=== PATIENT | male | born 1950 | race Caucasian/White ===

== ENCOUNTER 2016-08-21 08:42 | Inpatient (IN) | payer OTHER, MEDICARE ==
--- NOTE | 2016-08-16 14:45 | GHP ---
[f rep st] PREOP HISTORY AND PHYSICAL DATE OF ADMISSION: 08/21/2016 He will be an a.m. admission for surgery at [facility] on Sunday, August 21, 2016. PROBLEM: Right hip arthritis. HISTORY OF PRESENT ILLNESS: The patient is a 65-year-old man admitted for a right total hip arthrop lasty. He has had progressive pain in his hip for at least the last 2 years. His right hip is more painful than the left. His activities are now quite limited. He can only walk about a half a mile . He is taking Aleve twice a day. He has failed nonsurgical treatment. His symptoms have progress ed, and his activities are quite limited. Approximately 3 years ago, he underwent lumbar spine surgery. He still complains of numbness on the anterior right thigh. PAST MEDICAL HISTORY: He is treated for hypothyroidism, asthma, and hypertension. He also was diag nosed with prostate cancer last year. He received radiation therapy. There is no history of heart disease, stents, DVT, or hepatitis. There is a questionable history of sleep apnea. ALLERGIES: Drug allergies: Cipro and Levaquin caused leg muscle soreness. Penicillin caused hives . Metal allergies: None. Latex allergy: None. SOCIAL HISTORY: The patient is an health care attorney. He is single but lives with a female partner. He does not smoke cigarettes and occasionally drinks alcohol. FAMILY HISTORY: Positive for cancer, arthritis, and hypertension. PHYSICAL EXAMINATION: GENERAL: He is a healthy-appearing man. Height 6 feet 6 inches. Weight 192 pounds. BMI 22.2. EYES: The conjunctivae and sclerae are clear. Pupils are round and reactive. He has a cataract lens implant in the right eye. MOUTH: Good oral hygiene. No loose teeth. CHES T: Clear. No wheezing. HEART: Regular rhythm. No murmurs. EXTREMITIES: Pertinent findings are limited to his right hip. He has full hip extension and 120 degrees of flexion. External rotation 40 degrees. Internal rotation 10 degrees. Abduction 40 degrees. IMAGING: His films show advanced degenerative arthritis of the right hip. He is about 2 mm short. IMPRESSION ON ADMISSION: 1. Right hip advanced degenerative arthritis. Prepared for a right total hip arthroplasty. He has failed nonsurgical treatment. 2. Treatment for hypothyroidism. 3. Treatment for asthma. 4. Treatment for hypertension. 5. History of prostate cancer treated with radiation therapy. 6. Status post lumbar spine surgery. PLAN: He will undergo a right total hip arthroplasty. The surgery has been described to him, inclu ding the risks, complications, expectations, and recovery time. I have specifically discussed with him the risk of dislocation, leg length inequality, infection, and sciatic nerve injury. All his qu estions have been answered, and he consents to surgery. Copy requested to: Dr. Darvin Jackson, [place] /[id number]/MODL
[2016-08-16 15:30] LABS: % IMMATURE GRANULYOCYTES 0.4 % (0.0-1.1); ABSOLUTE IMMATURE GRANULOCYTES 0.03 10^3/uL (0.00-0.10); ADD DIFF? NO; ADD MORPH? NO; ADD SCAN? NO; ATYPICAL LYMPHOCYTE FLAG 0 (0-99); FRAGMENT RBC FLAG 0 (0-99); HEMATOCRIT 44.6 % (40.0-51.0); HEMOGLOBIN 14.5 g/dL (13.7-17.5); LEFT SHIFT FLG 0 (0-99); LIPEMIA HEMOLYSIS FLAG 80 (0-99); MEAN CELL HEMOGLOBIN 29.7 pg (27.9-34.1); MEAN CELL HEMOGLOBIN CONCENTR. 32.5 g/dL (32.4-36.7); MEAN CELL VOLUME 91.2 fL (81.5-99.8); MEAN PLATELET VOLUME 9.8 fL (8.7-11.7); PLATELET CLUMPS FLAG 0 (0-99); PLATELET COUNT 226 10^3/uL (150-400); RED BLOOD CELL COUNT 4.89 10^6/uL (4.40-6.38)
[~2016-08-21 08:42] MED LIST: ACETAMINOPHEN 325 MG TAB PO ONE; CEFAZOLIN 2 GM/DEXTR 100 ML IV ONE; CHLORHEXIDINE GLUC HIBICLENS 118 ML BTL TP ONE; DEXAMETHASONE 4 MG/ML VIAL IVP ONE; FAMOTIDINE 20 MG TAB PO ONE; NS IV ONE; POVIDONE-IODINE 20 ML in SODIUM CL IRRIG SOLUTION 500 ML IRR ONE; ROPI/epiNEPH/KETOROLAC JOINT COCKTAIL IU ONE; TRANEXAMIC ACID IV ONE; ceFAZolin 1 GM/5 ML SYR ONE
[2016-08-21] MEDS ORDERED: MIDAZOLAM 2 MG/2 ML VIAL ONE ×3 (08:55→10:04)
[2016-08-21] MEDS ORDERED: fentaNYL 250 MCG/5 ML INJ ONE (08:56)
[2016-08-21] MEDS ORDERED: PROPOFOL/EMULSION 500 MG/50 ML BOTTLE IV ONE (08:56)
[2016-08-21] MEDS ORDERED: PROPOFOL 200 MG/20 ML VIAL ONE (09:10)
[2016-08-21] MEDS ORDERED: ALBUTEROL 3 ML DEYVIAL ONE (09:14)
[2016-08-21] MEDS ORDERED: FAMOTIDINE 20 MG TAB ONE (09:38)
[2016-08-21] MEDS ORDERED: DEXAMETHASONE 4 MG/ML VIAL ONE (09:38)
[2016-08-21] MEDS ORDERED: CEFAZOLIN 2 GM/DEXTROSE/100 ML BAG IV ONE (09:39)
[2016-08-21] MEDS ORDERED: ACETAMINOPHEN 325 MG TAB ONE (09:39)
[2016-08-21] MEDS ORDERED: LR 1,000 ML IV ONE (10:20)
[2016-08-21] MEDS ORDERED: LIDOCAINE 1% 5 ML SDV ID PRN (10:20)
[2016-08-21] MEDS ORDERED: PHARMACY PAIN CONSULT 1 EA MISC PRN (12:58)
[2016-08-21] MEDS ORDERED: BISACODYL 10 MG SUPP PR PRN (12:58)
[2016-08-21] MEDS ORDERED: diphenhydrAMINE 25 MG CAP PO PRN (12:58)
[2016-08-21] MEDS ORDERED: POLYETHYLENE GLYCOL 3350 17 GM PKT PO PRN (12:58)
[2016-08-21] MEDS ORDERED: ONDANSETRON DISINTEGRATING 4 MG TAB PO PRN (12:58)
[2016-08-21] MEDS ORDERED: MAGNESIUM HYDROXIDE 30 ML UDCUP PO PRN (12:58)
[2016-08-21] MEDS ORDERED: CYCLOBENZAPRINE 10 MG TAB PO PRN (12:58)
[2016-08-21] MEDS ORDERED: NS 500 ML IV PRN (12:58)
[2016-08-21] MEDS ORDERED: TEMAZEPAM 15 MG CAP PO PRN (12:58)
[2016-08-21] MEDS ORDERED: METOCLOPRAMIDE 10 MG/2 ML VIAL IVP PRN (12:58)
[2016-08-21] MEDS ORDERED: traMADol 50 MG TAB PO PRN (12:58)
[2016-08-21] MEDS ORDERED: LACTULOSE 20 GM/30 ML UDCUP PO PRN (12:58)
[2016-08-21] MEDS ORDERED: ONDANSETRON 4 MG/2 ML VIAL IVP PRN (12:58)
[2016-08-21] MEDS ORDERED: DIPHENOXYLATE/ATROPINE LOMOTIL 1 TAB PO PRN (12:58)
[2016-08-21] MEDS ORDERED: oxyCODONE IR 5 MG TAB PO PRN (12:58)
[2016-08-21] MEDS ORDERED: KETOROLAC 30 MG/1 ML SDV IVP PRN (12:58)
[2016-08-21] MEDS ORDERED: PROMETHAZINE HCL 25 MG SUPPR PR PRN (12:58)
[2016-08-21] MEDS ORDERED: LR 1,000 ML IV SCH (13:00)
--- NOTE | 2016-08-21 13:06 | POSTOPPROG ---
Post Op Note Date of Operation: 08/21/16 Surgeon: Charles Munson Food Service Agent: Tay/Alyssa Anesthesiologist: Willy Anesthesia: IV Sedation, Spinal Post-op Diagnosis: R hip arthritis Procedure: R [place] Inf/Abcess present in the surg proc area at time of surgery?: No EBL: [id number]
--- NOTE | 2016-08-21 13:50 | GOP ---
[f rep st] OPERATIVE REPORT DATE OF OPERATION: 08/21/2016 SURGEON: Charles Munson MD PROFESSIONAL DRIVER: Eric Cross PA-C and Stone Shah CFA ANESTHESIA: Combination of Marcaine spinal and IV sedation. ANESTHESIOLOGIST: Dr. Abdullahi Levine PREOPERATIVE DIAGNOSIS: Right hip severe degenerative arthritis. POSTOPERATIVE DIAGNOSIS: Right hip severe degenerative arthritis. PROCEDURE PERFORMED: Right total hip arthroplasty, Oxinium femoral head on highly cross-linked poly ethylene cup liner. FINDINGS: DESCRIPTION OF PROCEDURE: The patient was given 2 g of IV Ancef preoperatively within 60 minutes of surgery. He also received IV tranexamic acid at a dose of 20 mg/kg. He was placed on the operatin g room table and given spinal anesthesia with Marcaine by Dr. Levine. He was then placed supine and given IV sedation. A Leyva catheter was not used. He wore a DEMETRICE stocking and SCD on the nonoperat yumiko leg. He was rolled to the left lateral decubitus position. The position was secured with the p egboard table attachment. An axillary roll was used and all pressure points were carefully padded. I was careful to lock his pelvis in a vertical position. His perineum was isolated with plastic ad hesive drapes. His right hip and right lower extremity were prepped with ChloraPrep. They were yaa ped free using sterile sheets, stockinette, and Ioban plastic adhesive drape. The World Health Organization timeout was performed to verify the correct surgical side and site, an d the correct patient identity. The [place] timeout was also performed. I made a 5-inch straight oblique posterolateral hip skin incision. The subcutaneous tissues were sh arply divided and hemostasis was obtained using electrocautery. The fascia magdalena was identified and split along the axis of its fibers. I then curved posteriorly and proximally and split the fascia o f the gluteus brain and bluntly split the muscle fibers in line with their orientation. The incis ion only extended a short distance into the fascia magdalena distally. The Charnley self-retaining retra ctor was inserted. His sciatic nerve was located, partially exposed and protected throughout the pr ocedure. The external rotators and the posterior hip capsule were divided as separate layers at the base of the femoral neck, tagged and reflected posteriorly. A smooth 8-inch Steinmann pin was inse rted vertically into the ilium superior to the acetabulum. A 1/8th inch drill bit was inserted vert ically into the greater trochanter and parallel to the first pin. The distance between the 2 was me asured for leg length reference. His femoral head was dislocated posteriorly. Severe degenerative changes were present on the femoral head. His femoral neck was osteotomized at the appropriate leve l and inclination. I was careful to preserve all the posterior capsule and most of the anterior capsule. The remnant o f his damaged labrum was excised. I prepared the femur first. This allowed me to oncology coordinator the amount of natural femoral neck anteversion . This, in turn, allowed me to later determine the correct amount of cup anteversion. He had appro ximately 10 or 12 degrees of natural femoral neck anteversion. The canal was opened laterally with a box chisel. I reamed and broached sequentially up to a size 16. I used a size 16 broach as a tri al stem. I was careful to lateralize adequately. Appropriate retractors were inserted to expose the acetabulum. The acetabulum was reamed sequential ly up to 57 mm. I selected a 58 mm Higuera and Nephew R3 solid backed hemispherical shell. This was tapped securely into place in the proper degree of inclination anteversion. Fixation was strong and I did not think supplemental screw fixation was necessary. I performed a series of trial reduction s to determine length and stability. I took an intraoperative cross-table AP pelvis x-ray. Leg didier gths looked equal. I felt the size 16 stem was the correct size. I thought he could have a little more cup anteversion. I went back and repositioned the acetabular shell into about 5 or 10 degrees more anteversion. The trial reduction with a flush mounted liner was stable. The flush Higuera and N ephew R3 highly cross-linked polyethylene liner was inserted and tapped securely into place. I chao cted the Higuera and Nephew Synergy stem in a size 16 with standard offset. This was inserted press-f it and was very tight. I did 1 final trial reduction and confirmed that the +4 mm neck length with a 36 mm head was the proper combination. The Higuera and Nephew Oxinium head with an outside diameter of 36 mm and a neck length of +4 mm was tapped securely onto the clean trunnion. The acetabulum wa s irrigated and cleaned and the hip was reduced 1 final time. He had excellent anterior and posteri or stability and appropriate length. 40 mL of the joint anesthetic cocktail were injected into the capsule, the deep musculature, and the subcutaneous tissues around the skin edges. The joint was thoroughly irrigated 1 final time with a dilute Betadine solution. His sciatic nerve was reinspected and looked unharmed. The external rot ators and the posterior hip capsule were repaired in separate layers with #2 FiberWire sutures throu gh drill holes in the greater trochanter. This provided a very strong posterior capsular and tool setter apprentice al rotator repair. The fascia magdalena was closed first with several interrupted [id number] #2 Fib erWire sutures followed by a running #2 barbed Ethicon Stratafix PDO suture. Subcutaneous tissues w ere closed with a running 0 barbed Ethicon Stratafix Monoderm suture. The skin was closed with a ru nning 3-0 barbed Ethicon Stratafix monoderm subcuticular suture. The skin edges were reapproximated and sealed with Dermabond glue. The wound was covered with a strip of Telfa, and everything was he ld in place with a piece of clear plastic Tegaderm. A long-leg DEMETRICE stocking and SCD were applied to his right lower extremity. He wore a stocking and S CD on the opposite leg during the procedure. An abduction pillow was placed between his knees. He was awakened from anesthesia and rolled to the supine position on his [facility]. He was taken to PACU in satisfactory condition. There were no intraoperative complications. The estimated bloo d loss was about 400 mL. The sponge and needle count were correct on 2 occasions. I used a Higuera and Nephew R3 hemispherical solid-backed acetabular shell with an outside diameter of 58 mm. The liner was a Higuera and Nephew R3 flush highly cross-linked liner with an inside diameter of 36 mm. The femoral component was a standard offset Higuera and Nephew Synergy stem in size 16 and press-fit. The femoral head was Higuera and Nephew Oxinium head with a +4 mm neck length and a 36 mm outside diameter. Eric Cross and Stone Shah acted as surgical assistants. Their assistance was a medical [place]. Copy requested to: Jimmy Hatch MD /[id number]/[facility]
[2016-08-21] MEDS: ACETAMINOPHEN 325 MG TAB PO SCH ×2 (18:08→23:45)
[2016-08-21] MEDS: ceFAZolin 2 GM/DEXTROSE 100 ML IV SCH (18:08)
[2016-08-21] MEDS ORDERED: Mometasone/Formoterol [Dulera 200 Mcg/5 Mcg Inhaler] 2 PUFFS) IH SCH (21:00)
[2016-08-21] MEDS ORDERED: AZELASTINE HCL EACHNARE SCH (21:00)
[2016-08-21] MEDS ORDERED: TAMSULOSIN HCL 0.4 MG CAP PO SCH (21:00)
[2016-08-21] MEDS: AZELASTINE HCL EACHNARE SCH (21:13)
[2016-08-21] MEDS: SENNOSIDES/DOCUSATE SODIUM TAB PO SCH (21:13)
[2016-08-21] MEDS: TRANEXAMIC ACID 650 MG TAB PO SCH (21:13)
[2016-08-21] MEDS: ASPIRIN 325 MG TAB PO SCH (21:13)
[2016-08-21] MEDS: FAMOTIDINE 20 MG TAB PO SCH (21:13)
[2016-08-21] MEDS: Mometasone/Formoterol [Dulera 200 Mcg/5 Mcg Inhaler] 2 PUFFS) IH SCH (21:15)
[2016-08-22] MEDS: ceFAZolin 2 GM/DEXTROSE 100 ML IV SCH (04:41)
[2016-08-22 04:55] VITALS: O2SAT 93
[2016-08-22 05:02] LABS: HEMATOCRIT 37.1 % (40.0-51.0); HEMOGLOBIN 12.6 g/dL (13.7-17.5)
[2016-08-22] MEDS: ACETAMINOPHEN 325 MG TAB PO SCH ×2 (05:18→13:20)
[2016-08-22] MEDS ORDERED: LEVOTHYROXINE 150 MCG TAB PO SCH (06:00)
[2016-08-22] MEDS ORDERED: IPRATROPIUM 0.03% NASAL SPRAY EACHNARE PRN (08:07)
[2016-08-22] MEDS ORDERED: DRY EYE RELIEF EACHEYE PRN (08:07)
[2016-08-22 08:09] VITALS: TEMP 98.1
[2016-08-22] MEDS ORDERED: TEARS/DEXTRAN 70/HYPROMELLOSE 15 ML OPHT.BTL EACHEYE PRN (08:20)
[2016-08-22] MEDS ORDERED: ALBUTEROL 60 PUFFS/8 GM MDI IH PRN (08:30)
--- NOTE | 2016-08-22 08:31 | SOAPPROG ---
SOAP Progress Note Assessment/Plan: Assessment: Afebrile. Mild pain. Has been up and walking in [place]. Dsg is dry. Min swelling. Sciatic nerve intact. H/H is good. He is self catheterizing himself like he does at home. Films look good. Plan: DC today. 08/22/16 08:29 Objective: Vital Signs Temp Pulse Resp BP Pulse Ox 36.7 C 64 16 136/77 H 93 08/22/16 08:08 08/22/16 08:08 08/22/16 08:08 08/22/16 08:08 08/22/16 08:08 Laboratory Results 08/22/16 04:23 08/21/16 08/22/16 08/23/16 05:59 05:59 05:59 Intake Total 3700 Output Total 1550 Balance 2150 ICD10 Worksheet Patient Problems: Problems Problem Status Onset Osteoarthritis of right hip Acute
[2016-08-22] MEDS ORDERED: FLUTICASONE NASAL 120 SPRAYS/16 GM MDI EACHNARE SCH (09:00)
[2016-08-22] MEDS ORDERED: FERROUS SULFATE 140 MG TAB.ER PO SCH (09:00)
[2016-08-22] MEDS ORDERED: Herbals/Supplements -Info Only PO SCH (09:00)
[2016-08-22] MEDS ORDERED: ASCORBIC ACID 500 MG TAB PO SCH (09:00)
[2016-08-22] MEDS ORDERED: guaiFENesin 600 MG TAB.ER PO SCH (09:00)
[2016-08-22] MEDS ORDERED: RAMIPRIL 5 MG CAP PO SCH (09:00)
[2016-08-22] MEDS ORDERED: MULTIVITAMINS 1 EACH TAB PO SCH (09:00)
[2016-08-22] MEDS ORDERED: TESTOSTERONE 5 GM TD SCH (09:00)
[2016-08-22] MEDS: TRANEXAMIC ACID 650 MG TAB PO SCH (09:02)
[2016-08-22] MEDS: ASPIRIN 325 MG TAB PO SCH (09:04)
[2016-08-22] MEDS: SENNOSIDES/DOCUSATE SODIUM TAB PO SCH (09:04)
[2016-08-22] MEDS: FAMOTIDINE 20 MG TAB PO SCH (09:05)
[2016-08-22] MEDS: Mometasone/Formoterol [Dulera 200 Mcg/5 Mcg Inhaler] 2 PUFFS) IH SCH (09:06)
[2016-08-22] MEDS: AZELASTINE HCL EACHNARE SCH (09:07)
--- NOTE | 2016-08-22 09:33 | GDS ---
[f rep st] DISCHARGE SUMMARY ADMISSION DIAGNOSIS: Right hip severe degenerative arthritis. DISCHARGE DIAGNOSIS: Right hip severe degenerative arthritis. OPERATION PERFORMED: 08/21/2016, a right total hip arthroplasty, Oxinium femoral head on highly microwave remote sensing scientist ss-linked polyethylene liner. POSTOPERATIVE COMPLICATIONS: None. CONDITION ON DISCHARGE: Improved. HOSPITAL COURSE: The patient was admitted to the hospital on the morning of surgery. His admission CBC was normal. The same day, under a combination of spinal anesthesia and IV sedation, he underwe nt a right total hip arthroplasty. Postoperatively, he was treated with multimodal DVT prophylaxis, including aspirin. He was largely able to void spontaneously, although he occasionally was self-ca theterizing himself. This is what he does at home as well. On the 1st postoperative day, his hemoglobin and hematocrit were 12.6 and 37.1. He was seen by [facility] and made excellent progress with ambulation and stairs. By the time of discharge, he w as afebrile, his wound was clean and dry, and he was independent walking with a walker. DISPOSITION: The patient is discharged to his home. DISCHARGE INSTRUCTIONS: He will go to outpatient physical therapy. He may progress to full weightb earing as tolerated on the right hip. Use an abduction pillow in bed for 3 weeks. Continue aspirin 325 mg p.o. daily for 21 days. Use DEMETRICE stockings for 1 week. He has prescriptions for oxycodone a nd tramadol for pain control. I will see him back in the office on September 13, 2016. If there are any problems, he is to call me at the office. Copy requested to: Jimmy Hatch MD /[id number]/[facility]
[2016-08-22 11:47] VITALS: BP 104/62; PULSE 61; RESP 18
--- NOTE | 2016-08-22 13:08 | PDIAF ---
- Diagnosis Code Status: Full Code - Medication Management Discharge Medications: Medications to Continue on Transfer Ascorbic Acid [Vitamin C 500 mg (*)] 1,000 mg PO DAILY 06/04/16 [Last Taken 03/22] Azelastine HCl [Astepro] 1 spray EACHNARE BID 06/04/16 [Last Taken 08/20/16 07: 00] Fluticasone Nasal [Flonase Nasal Marks] 1 sprays NASAL BID 06/04/16 [Last Taken 08/20/16 07:00] Herbals/Supplements -Info Only 1 ea PO DAILY 06/04/16 [Last Taken 08/14/16] Ipratropium 0.03% Nasal [Atrovent 0.03% Nasal (*)] 1 sprays EACHNARE BID PRN [Last Taken 08/20/16 07:00] Levothyroxine [Synthroid 150 mcg (*)] 150 mcg PO DAILY06 06/04/16 [Last Taken 06:00] Mometasone/Formoterol [Dulera 200 Mcg/5 Mcg Inhaler] 2 puffs IH BID 06/04/16 [ Last Taken 08/21/16 06:00] Multivitamins [Multivitamin (*)] 1 each PO DAILY 06/04/16 [Last Taken 08/14/16] Naproxen Sodium [Aleve 220 MG (*)] 220 mg PO DAILY 06/04/16 [Last Taken 08/14/16 ] Ramipril [Altace] 10 mg PO DAILY 06/04/16 [Last Taken 08/20/16 07:00] Tamsulosin HCl [Flomax 0.4 MG (*)] 0.8 mg PO HS 06/04/16 [Last Taken 08/20/16 22 :00] Testosterone [Testim] 5 gm TD DAILY 06/04/16 [Last Taken 08/14/16] guaiFENesin [Mucinex 600 MG (*)] 600 mg PO BID 06/04/16 [Last Taken 08/20/16 19: 00] Albuterol Sulfate [Proair Respiclick] 1 - 2 puffs IH Q4 PRN 08/21/16 [Last Taken Unknown] Dry Eye Relief 1 drop EACHEYE DAILY PRN 08/21/16 [Last Taken Unknown] Acetaminophen [Tylenol 325mg (*)] 650 mg PO Q6HRS #0 tab 08/22/16 [Last Taken Unknown] Aspirin [Aspirin 325 mg (*)] 325 mg PO DAILY #21 tab 08/22/16 [Last Taken Unknown] Ferrous Sulfate [Slow Fe 140 MG (*)] 140 mg PO DAILY #30 tab.er 08/22/16 [Last Taken Unknown] Ondansetron Odt [Zofran Odt 4 mg (*)] 4 mg PO Q4HRS PRN #0 tab 08/22/16 [Last Taken Unknown] oxyCODONE IR [Oxycodone Ir (*)] 5 - 10 mg PO Q3HRS PRN #0 tab 08/22/16 [Last Taken Unknown] traMADol [Ultram 50 mg (*)] 50 mg PO Q6HRS PRN #0 tab 08/22/16 [Last Taken Unknown] Discharge Medications: Refer to the Discharge Home Medication list for PRN reason. - Orders Services needed: Physical Therapy Diet Recommendation: no restrictions on diet Diet Texture: Regular Texture Diet - Follow Up Care Current Providers and Referrals: Jimmy Hatch MD [Primary Care Provider] - Charles Munson MD [Medical Doctor] - 09/13/16 1:45 am
== END 2016-08-22 13:59 | disposition home or self-care (01) | DRG 470 ==
LOC: F3N 08:42
PROVIDERS: ADMIT Orthopaedic Surgery; ATTEND Orthopaedic Surgery
PROC: 0SR902Z Replacement of Right Hip Joint with Metal on Polyethylene Synthetic Substitute, Open Approach (ICD-10-PCS; principal; 2016-08-21 10:30)
DX: M16.11 Unilateral primary osteoarthritis, right hip (principal); E03.9 Hypothyroidism, unspecified; I10 Essential (primary) hypertension; J45.909 Unspecified asthma, uncomplicated; Z85.46 Personal history of malignant neoplasm of prostate; Z92.3 Personal history of irradiation
CPT/HCPCS: 97116-GP; 97161-GP; 97165-GO; G8978-GP-CI; G8979-GP-CI; G8980-GP-CI; G8987-GO-CI; G8988-GO-CI; G8989-GO-CI; J0171; J0690; J1100; J1885; J2250; J2704; J2795; J3010